=== PATIENT | male | born 1985 | race Caucasian/White ===

== ENCOUNTER 2020-01-07 12:08 | Emergency (ER) | payer OTHER, SELFPAY ==
[2020-01-07 12:49] VITALS: BP 120/74; PULSE 94; RESP 18; TEMP 36.7; O2SAT 96
--- NOTE | 2020-01-07 13:49 | ED.ALLEREA ---
HPI - Allergic Reaction General Chief complaint: Allergic Reaction Stated complaint: recation to orajel Time Seen by Provider: 01/07/20 12:49 Source: patient and EMS Mode of arrival: EMS Limitations: no limitations History of Present Illness HPI narrative: Patient is a 34-year-old male who presents to emergency department for evaluation of feeling like her heart rate was fast after taking Orajel went to an urgent care was discharged and contacted EMS noting that she is feeling rapid heart rate. Patient denies any other complaints or symptoms presents in no distress Related Data Home Medications Medication Instructions Recorded Confirmed No Home Medications 01/07/20 01/07/20 Allergies Allergy/AdvReac Type Severity Reaction Status Date / Time cefaclor Allergy Mild Joint Pain Verified 01/07/20 12:57 Penicillins Allergy Mild Joint Pain Verified 01/07/20 12:57 ZIPRASIDONE HCL Allergy Mild Unknown Uncoded 01/07/20 12:57 Review of Systems Review of Systems: All systems reviewed & are unremarkable except as noted in HPI and below Exam Narrative: Exam Narrative: GENERAL: Well-appearing, well-nourished, and in no acute distress. HEAD: Normocephalic, atraumatic. EYES: PERRLA and EOMI. ENT: Nares clear, no rhinorrhea or epistaxis. Mucous membranes moist. Gross dental caries CHEST: Clear to auscultation. No respiratory distress. No wheezes rales or rhonchi HEART: Regular rate and rhythm. No murmur heard. Normal pulse EXTREMITIES: Normal range of motion. No edema. SKIN: Warm, dry, no rash. NEURO: No focal deficits. Alert and oriented x3. PSYCH: Normal mood and affect. Course Course Emergency Course: Patient in room no distress aware of case findings treatment plan and diagnosis agreeing to follow-up as directed hemodynamically stable no concerning findings on exam Vital Signs Vital signs: Vital Signs Temperature 98.0 F 01/07/20 12:49 Pulse Rate 94 01/07/20 12:49 Respiratory Rate 18 01/07/20 12:49 Blood Pressure 120/74 01/07/20 12:49 Pulse Oximetry 96 01/07/20 12:49 Temperature 98.0 F 01/07/20 12:49 Pulse Rate 94 01/07/20 12:49 Respiratory Rate 18 01/07/20 12:49 Blood Pressure 120/74 01/07/20 12:49 Pulse Oximetry 96 01/07/20 12:49 MDM - Allergic Reaction MDM Narrative Medical decision making narrative: Patient in the room in no distress aware of case findings treatment plan and diagnosis agreeing to follow-up with primary care for further instructions and reevaluation Discharge Plan Discharge Clinical Impression: Allergic reaction Patient Disposition: Home, Self-Care Condition: Stable Instructions: Antibiotic Form, Allergies (ED) Additional Instructions: Follow up with your primary care provider within 5-7 days. Go to ER for shortness of breath, difficulty breathing, chest pain, fever/chills, weakness, nauseau/vomitting, etc. or any other concerns. Follow-up with dentistry as planned Take any prescribed medications as directed. Stay well-hydrated If you do not have a drug allergy to tylenol or motrin and can tolerate it then take tylenol or motrin as needed for discomfort/pain. Prescriptions: No Action No Home Medications RF: 0 Follow-up/Referrals: Romy,Uday Gamboa MD [Primary Care Provider] -
== END 2020-01-07 14:18 | disposition home or self-care (01) ==
PROVIDERS: Emergency Provider Emergency Medicine; PCP Family Medicine
DX: T78.40XA Allergy, unspecified, initial encounter (principal)
CPT/HCPCS: 99281